=== PATIENT | male | born 1965 | race Caucasian/White ===

== ENCOUNTER 2023-08-01 11:58 | Inpatient (IN) | payer BC, MEDICAID ==
[~2023-08-01] VITALS: Ht 170.2 cm; Wt 93.2 kg
[2023-08-01 12:00] VITALS: BP_SYST 95; PULSE 67; RESP 19; TEMP 98; O2SAT 94; O2SAT 96
[2023-08-01 12:43] LABS: BASOPHILS % (AUTO) 0.6 % (0.0-2.0); EOSINOPHILS # (AUTO) 0.4 K/uL (0.0-0.4); EOSINOPHILS % (AUTO) 5.4 % (0.0-4.0); HEMATOCRIT 37.9 % (36-54); HEMOGLOBIN 12.5 g/dL (14.0-18.0); LYMPHOCYTES # (AUTO) 0.9 K/uL (1.0-5.5); LYMPHOCYTES % (AUTO) 13.2 % (20.5-51.5); MEAN CORPUSCULAR HEMOGLOBIN 26 pg (27-31); MEAN CORPUSCULAR HGB CONC 33 % (32-36); MEAN CORPUSCULAR VOLUME 78 fL (79.0-98.0); MONOCYTES # (AUTO) 0.7 K/uL (0.0-1.0); MONOCYTES % (AUTO) 10.7 % (1.7-9.3); NEUTROPHILS # (AUTO) 4.6 K/uL (1.8-7.7); NEUTROPHILS % (AUTO) 70.1 % (40.0-70.0); PLATELET COUNT (AUTO) 286 K/uL (130-430); RED BLOOD CELL COUNT(AUTO) 4.86 MIL/uL (4.2-6.2); RED CELL DISTRIBUTION WIDTH 16.3 % (9.0-15.0); WHITE BLOOD COUNT (AUTO) 6.6 K/uL (4.8-10.8)
[2023-08-01] MEDS: NACL 0.9% 1,000 ML IV ONE (12:52)
[2023-08-01 13:05] LABS: ALANINE AMINOTRANSFERASE 11 U/L (12-78); ALBUMIN 3.5 g/dL (3.4-4.8); ANION GAP 11 (5-15); BILIRUBIN,DIRECT 0.1 mg/dL (0.0-0.3); CALCIUM 8.7 mg/dL (8.4-11.0); CARBON DIOXIDE 25 mmol/L (23-29); CHLORIDE 104 mmol/L (98-107); CREATININE 1.73 mg/dL (0.55-1.30); GFR AFRICAN AMERICAN 52 mL/min (>90); GLUCOSE 114 mg/dL (74-106); POTASSIUM 3.9 mmol/L (3.5-5.1); SODIUM SERUM 140 mmol/L (136-145); TOTAL BILIRUBIN 0.5 mg/dL (0.0-1.0); TOTAL PROTEIN, SERUM 6.8 g/dL (6.4-8.3); UREA NITROGEN, BLOOD 19 mg/dL (8-21)
[2023-08-01 13:09] LABS: GFR NON AFRICAN-AMERICAN 43 mL/min (>90)
[2023-08-01 13:23] LABS: ASPARTATE AMINOTRANSFERASE 10 U/L (10-37)
[2023-08-01] MEDS ORDERED: PIPERACILLIN/TAZOBACTAM 3.375 GM/VIAL (ZOSYN) IV ONE (14:44)
[2023-08-01] MEDS: PIPERACILLIN/TAZO 3.375 GM in NS 50 ML IV ONE (14:47)
[2023-08-01] MEDS ORDERED: NITSL SL (15:50)
[2023-08-01] MEDS ORDERED: SACU1TAB PO (15:50)
[2023-08-01] MEDS ORDERED: NEU300 PO (15:50)
[2023-08-01] MEDS ORDERED: DOCU-144 PO (15:50)
[2023-08-01] MEDS ORDERED: FURO-149 PO (15:50)
[2023-08-01] MEDS ORDERED: DAPA10TA PO (15:50)
[2023-08-01] MEDS ORDERED: ICOS1CAP PO (15:50)
[2023-08-01] MEDS ORDERED: PSYL0.4C2 PO (15:50)
[2023-08-01] MEDS ORDERED: TRAZ-251 PO (15:50)
[2023-08-01] MEDS ORDERED: LIP40 PO (15:50)
[2023-08-01] MEDS ORDERED: ALBMDI INH (15:50)
[2023-08-01] MEDS ORDERED: POTA8TAB66 PO (15:50)
[2023-08-01] MEDS ORDERED: PRO40 PO (15:50)
[2023-08-01] MEDS ORDERED: BUPR300T55 PO (15:50)
[2023-08-01] MEDS ORDERED: [UNRECOGNIZED DRUG - CODE] PO (15:50)
[2023-08-01] MEDS ORDERED: EVOL140P3 SUBCUT (15:50)
[2023-08-01] MEDS ORDERED: CARV3.1246 PO (15:50)
[2023-08-01] MEDS ORDERED: ASPI-1393 PO (15:50)
[2023-08-01] MEDS: NACL 0.9% 1,000 ML IV SCH (15:51)
[2023-08-01] MEDS ORDERED: NITROGLYCERIN 0.4 MG TAB.SUBL SL SCH (18:00)
[2023-08-01] MEDS ORDERED: ALBUTEROL MDI INHALATION 8 GM INH INH PRN (18:00)
[2023-08-01] MEDS: MAG-AL HYDROX/SIMETH 30 ML UDC PO PRN (18:57)
[2023-08-01 20:00] VITALS: BP_SYST 105; PULSE 65; RESP 18; TEMP 98.7; O2SAT 96
[2023-08-01] MEDS: DOCUSATE SODIUM 100 MG CAPSULE PO SCH (22:20)
[2023-08-01] MEDS: GABAPENTIN 300 MG CAPSULE PO SCH (22:20)
[2023-08-01] MEDS: traZODone HCL 50 MG TABLET (DESYREL) PO SCH (22:47)
[2023-08-02] VITALS (9 sets, daily range): BP systolic 104–121; PULSE 60–72; RESP 16–18; TEMP 96.9–98.7; O2SAT 92–97
[2023-08-02 04:49] LABS: BILIRUBIN,URINE NEGATIVE (NEGATIVE); BLOOD, URINE NEGATIVE (NEGATIVE); CLARITY/URINE CLEAR (CLEAR); COLOR,URINE YELLOW (YELLOW); GLUCOSE,URINE 3+ (NEGATIVE); KETONES,URINE NEGATIVE (NEGATIVE); LEUKOCYTE ESTERASE ,URINE NEGATIVE (NEGATIVE); NITRITE, URINE NEGATIVE (NEGATIVE); PROTEIN URINE NEGATIVE (NEGATIVE); UROBILINOGEN,URINE 0.2 (0.2-1.0)
[2023-08-02 05:10] LABS: BASOPHILS # (AUTO) 0.1 K/uL (0.0-0.2); BASOPHILS % (AUTO) 1.1 % (0.0-2.0); EOSINOPHILS # (AUTO) 0.4 K/uL (0.0-0.4); EOSINOPHILS % (AUTO) 7.4 % (0.0-4.0); HEMOGLOBIN 11.5 g/dL (14.0-18.0); LYMPHOCYTES # (AUTO) 1.4 K/uL (1.0-5.5); LYMPHOCYTES % (AUTO) 29.6 % (20.5-51.5); MEAN CORPUSCULAR HEMOGLOBIN 26 pg (27-31); MEAN CORPUSCULAR HGB CONC 33 % (32-36); MEAN CORPUSCULAR VOLUME 79 fL (79.0-98.0); MONOCYTES # (AUTO) 0.7 K/uL (0.0-1.0); MONOCYTES % (AUTO) 14.7 % (1.7-9.3); NEUTROPHILS # (AUTO) 2.3 K/uL (1.8-7.7); NEUTROPHILS % (AUTO) 47.2 % (40.0-70.0); PLATELET COUNT (AUTO) 256 K/uL (130-430); RED BLOOD CELL COUNT(AUTO) 4.45 MIL/uL (4.2-6.2); RED CELL DISTRIBUTION WIDTH 16.3 % (9.0-15.0); WHITE BLOOD COUNT (AUTO) 4.8 K/uL (4.8-10.8)
[2023-08-02 05:51] LABS: CALCIUM 8.4 mg/dL (8.4-11.0); CREATININE 1.32 mg/dL (0.55-1.30); POTASSIUM 4.2 mmol/L (3.5-5.1)
[2023-08-02] MEDS ORDERED: FUROSEMIDE 40 MG TABLET PO SCH (09:00)
[2023-08-02] MEDS: ASPIRIN 81 MG TABLET(ECOTRIN) PO SCH (09:50)
[2023-08-02] MEDS: buPROPion HCL 150 MG XL TAB PO SCH (09:50)
[2023-08-02] MEDS: PANTOPRAZOLE SODIUM 40 MG TAB PO SCH (09:51)
[2023-08-02] MEDS: ATORVASTATIN 20 MG TABLET PO SCH (09:51)
[2023-08-03] VITALS (8 sets, daily range): BP systolic 98–118; PULSE 50–68; RESP 18–20; TEMP 97–97.8; O2SAT 92–99
[2023-08-03 08:00] LABS: ALBUMIN 3.1 g/dL (3.4-4.8); CALCIUM 8.7 mg/dL (8.4-11.0); CREATININE 1.26 mg/dL (0.55-1.30); POTASSIUM 4.2 mmol/L (3.5-5.1); THYROID STIMULATING HORMONE 5.08 uIu/mL (0.34-4.82); TOTAL BILIRUBIN 0.4 mg/dL (0.0-1.0); TOTAL PROTEIN, SERUM 6.1 g/dL (6.4-8.3)
== END 2023-08-03 18:40 | disposition home or self-care (01) | DRG 315 ==
LOC: SED 11:58 → STU 14:27
PROVIDERS: ADMIT Internal Medicine; ATTEND Internal Medicine
DX: I95.9 Hypotension, unspecified (principal); I13.0 Hypertensive heart and chronic kidney disease with heart failure and stage 1 through stage 4 chronic kidney disease, or unspecified chronic kidney disease; N17.9 Acute kidney failure, unspecified; R42 Dizziness and giddiness; I25.10 Atherosclerotic heart disease of native coronary artery without angina pectoris; I50.9 Heart failure, unspecified; E78.5 Hyperlipidemia, unspecified; N18.9 Chronic kidney disease, unspecified; E86.0 Dehydration; K21.9 Gastro-esophageal reflux disease without esophagitis; R79.89 Other specified abnormal findings of blood chemistry; E66.9 Obesity, unspecified; F17.200 Nicotine dependence, unspecified, uncomplicated; F41.9 Anxiety disorder, unspecified; T50.2X5A Adverse effect of carbonic-anhydrase inhibitors, benzothiadiazides and other diuretics, initial encounter; Z68.32 Body mass index [BMI] 32.0-32.9, adult; Z87.01 Personal history of pneumonia (recurrent); Z95.5 Presence of coronary angioplasty implant and graft; Y92.89 Other specified places as the place of occurrence of the external cause
CPT/HCPCS: 36415; 71045; 80048; 80053; 80061; 80076; 81001; 81003; 82948; 83605; 83735; 83880; 84443; 84484; 85025; 85379; 87040; 93005; 93306; G0378; J2543